=== PATIENT | female | born 1995 | race Caucasian/White ===

== ENCOUNTER 2017-02-21 18:01 | Emergency (ER) | payer MEDICAID, OTHER ==
[~2017-02-21] VITALS: Ht 157.5 cm; Wt 75.5 kg
[2017-02-21 18:03] VITALS: Ht 157.5 cm; Wt 75.5 kg
[2017-02-21] MEDS ORDERED: CEPH-443 PO (18:52)
[2017-02-21] MEDS ORDERED: IBUP-1542 PO (18:52)
[2017-02-21] MEDS ORDERED: SULF1TAB31 PO (18:52)
--- NOTE | 2017-02-21 19:07 | ERD ---
ER Documentation Chief Complaint Date/Time DATE: 02/21/17 TIME: 19:05 Chief Complaint LEFT THUMB FINGER PAIN HPI 21-year-old female presents to emergency department for complaints of redness and pustular discharge coming out from the skin surrounding the left thumbnail started yesterday. Patient's clinical pain, sharp pain, 4/10 scale, is worse upon touching the area. Patient was able to drain pustular discharge from the area. Patient does not have any numbness or tingling. Patient denies any deformity. Patient denies any trauma and affected area. Patient denies any fever or chills. ROS All systems reviewed and are negative except as per history of present illness. Medications Home Meds Active Scripts Cephalexin* (Keflex*) 500 Mg Capsule, 500 MG PO QID for 10 Days, CAP Prov:ML FERNÁNDEZ NP 02/21/17 Sulfamethoxazole/Trimethoprim* (Bactrim Ds* Tablet) 1 Each Tablet, 1 TAB PO BID , #20 TAB Prov:ML FERNÁNDEZ NP 02/21/17 Ibuprofen* (Motrin*) 600 Mg Tab, 600 MG PO Q6H Y for PAIN AND OR ELEVATED TEMP, #30 TAB Prov:ML FERNÁNDEZ NP 02/21/17 Allergies Allergies: Coded Allergies: No Known Allergy (Unverified , 07/16/12) PMhx/Soc Medical and Surgical Hx: pt denies Medical Hx History of Surgery: Yes ( section) Anesthesia Reaction: No Hx Neurological Disorder: No Hx Respiratory Disorders: No Hx Cardiac Disorders: No Hx Psychiatric Problems: No Hx Miscellaneous Medical Probl: No Hx Alcohol Use: No Hx Substance Use: No Hx Tobacco Use: No FmHx Family History: No coronary disease, No diabetes, No other Physical Exam Vitals Vital Signs Date Time Temp Pulse Resp B/P Pulse Ox O2 Delivery O2 Flow Rate FiO2 02/21/17 18:03 98.2 90 19 119/67 99 Physical Exam GENERAL: The patient is well developed and appropriate for usual state of health, in no apparent distress. CHEST: Clear to auscultation bilaterally. There are no rales, wheezes or rhonchi. HEART: Regular rate and rhythm. No murmurs, clicks, rubs or gallops. No S3 or S4. ABDOMEN: Soft, nontender and nondistended. Good bowel sounds. No rebound or guarding. No gross peritonitis. No gross organomegaly or masses. No Gresham sign or McBurney point tenderness. BACK: No midline or flank tenderness. EXTREMITIES: Equal pulses bilaterally. There is no peripheral clubbing, cyanosis or edema. No focal swelling or erythema. Full range of motion. Grossly neurovascularly intact. NEURO: Alert and oriented. Cranial nerves 2-12 intact. Motor strength in all 4 extremities with 5/5 strength. Sensation grossly intact. Normal speech and gait. SKIN: Noted redness and swelling surrounding the left thumb nail, now. Discharge noted. No fluctuance noted. There is no apparent ecchymosis or petechia. The skin is warm and dry. HEMATOLOGIC AND LYMPHATIC: There is no evidence of excessive bruising or lymphedema. No gross cervical, axillary, or inguinal lymphadenopathy. Procedures/MDM Medical decision making: Patient's symptoms most likely consistent with paronychia, at this time,incision and drainage is not indicated, is already draining pustular discharge,at this time, no discharge noted, no fluctuance noted. No symptoms of any neurovascular compromise. No symptoms of sepsis at this time. Patient appears well and is hemodynamically stable. Patient was given for Bactrim, Keflex, ibuprofen, to follow with primary care doctor in 2 days for reevaluation of symptoms. Patient was advised to do wound care on affected area. Patient was advised to return to emergency department for worsening symptoms. Departure Diagnosis: Primary Impression: Paronychia Laterality: left Qualified Code: L03.012 - Paronychia, left Condition: Stable Patient Instructions: ML Sky NP February 21, 2017 19:07
== END 2017-02-21 18:13 | disposition home or self-care (01) ==
LOC: E/R 18:01
DX: L03.012 Cellulitis of left finger (principal)
CPT/HCPCS: 99282

== ENCOUNTER 2019-01-24 20:16 | Outpatient (CLI) | payer BC ==
[~2019-01-24] VITALS: Ht 152.4 cm; Wt 72.6 kg
[~2019-01-24 20:16] MED LIST: CEPH-443 PO; IBUP-1542 PO; SULF1TAB31 PO
[2019-01-24 20:34] VITALS: BP 121/81; PULSE 83; RESP 18
[2019-01-24] MEDS ORDERED: PREN-19 PO (20:36)
[2019-01-24] MEDS ORDERED: CEFTRIAXONE 1 GM/50 ML (PMX) 50 ML IVPB ONE (22:30)
[2019-01-24] MEDS ORDERED: SOD CHLORIDE 0.9% 1,000 ML IV ONE (22:30)
[2019-01-24] MEDS ORDERED: SOD CHLORIDE 0.9% 1,000 ML IV SCH (23:00)
--- NOTE | 2019-01-25 01:46 | PN ---
Triage Information Date/Time 01/25/19 0140 Reason for visit: Vag spotting / bleeding Weeks of Gestation 30w2d /Para A1 Diabetes: none Hypertention: none Additional information back pain Objective Vital Signs Date Temp Pulse Resp B/P (MAP) Pulse Ox O2 O2 Flow FiO2 Time Delivery Rate 01/24/19 98.2 83 18 121/81 Room Air 20:34 (94) Intake and Output 01/24/19 01/24/19 01/25/19 1515:00 23:00 07:00 IntakeIntake Total 350 ml BalanceBalance 350 ml Heart Rate Comments CAT I tracing Exam CVA ? tenderness left Results/Medications Result Diagram: 01/24/192119 Results 24 hrs Laboratory Tests Test 01/24/19 20:15 01/24/19 21:20 Urine Color LINDA Urine Clarity SLIGHTLY CLOUDY A Urine pH 6.0 Urine Specific Alsey 1.033 H Urine Ketones TRACE A Urine Nitrite NEGATIVE Urine Bilirubin NEGATIVE Urine Urobilinogen 2+ H Urine Leukocyte Esterase TRACE A Urine Microscopic RBC 2 Urine Microscopic WBC 9 H Urine Squamous Epithelial Cells MODERATE Urine Bacteria FEW A Urine Mucus MANY A Urine Hemoglobin 3+ H Urine Glucose 1+ H Urine Total Protein 2+ H White Blood Count 6.6 Red Blood Count 3.84 L Hemoglobin 11.3 L Hematocrit 33.8 L Mean Corpuscular Volume 88.0 Mean Corpuscular Hemoglobin 29.4 Mean Corpuscular Hemoglobin Concent 33.4 Red Cell Distribution Width 12.9 Platelet Count 202 Mean Platelet Volume 10.4 Immature Granulocytes % 0.300 Neutrophils % 63.8 Lymphocytes % 27.1 Monocytes % 7.3 Eosinophils % 1.2 Basophils % 0.3 Nucleated Red Blood Cells % 0.0 Immature Granulocytes # 0.020 Neutrophils # 4.2 Lymphocytes # 1.8 Monocytes # 0.5 Eosinophils # 0.1 Basophils # 0.0 Nucleated Red Blood Cells # 0.0 Medications IV NS rocephin 1gm Imaging Results CVL 4.3 BPP 8/8 EFW 1607gm 48.95 Disposition: Discharge Assessment/Plan A IUP 30w2d backache resolved UTI P discharge with cephalexin 500mg Q6HR #28 RTH with routine labor instructions JOAQUIN SEN MD January 25, 2019 01:46
--- NOTE | 2019-01-25 03:25 | TRIAGE ---
OB Triage Datetime Report Generated by CPN: 01/25/2019 03:24 Datetime: 01/24/2019 21:11 Vaginal Exam Membrane Status: Intact Datetime: 01/24/2019 20:40 Time of Arrival: 01/24/2019 20:09 EGA: 30.2 Arrived By: Ambulatory Arrived From: Home Chief Complaint: hx c/s x2 c/o back pain off and on last several days and now since 1900, and mod dk red bleeding since 1700 Movement: Present Contractions: Irregular Rupture of Membranes: Denies Vaginal Bleeding: Moderate Vaginal Discharge: Present Recent Sexual Intercouse: Denies Abdominal Trauma: Not Applicable Patient Complaints: Back Pain Time Provider Notified: 01/24/2019 20:30 Provider Notified: Dr Wheatley Initial Plan: EFM, UA, URINE CULTURE, CBC,CVL,BPP,EFW, PO HYDRATION Datetime: 01/24/2019 20:30 Stage of : OB Triage Labor Evaluation Monitor Mode: External Duration (sec)2399: 20-30 Quality: Mild Pattern: Normal: <= 5 Contractions in 10 Minutes Resting Tone Embarrass: Relaxed Heart Rate FHR Baseline Rate: 135 Monitor Mode: External US FHR Baseline Changes: No Baseline Change Variability: Moderate 6-25 bpm Accelerations: 15X15 Decelerations: None Category: Category I Datetime: 01/24/2019 20:22 Stage of : OB Triage Maternal Assessment Level of Consciousness: Fully Conscious Headache: Denies Blurred Vision: No Respiratory Effort: Unlabored Nausea/Vomiting: Denies RUQ Epigastric Pain: Denies Facial Edema: None Labor Evaluation Monitor Mode: External Resting Tone Embarrass: Relaxed Heart Rate FHR Baseline Rate: 140 Monitor Mode: External US Pain Assessment Pain Scale: 7 Pain Presence: Intermittent Pain Type: Sharp; Ache Pain Location: Back
== END 2019-01-25 01:15 | disposition home or self-care (01) ==
LOC: OBT 20:16 → L-D 20:17 → OBT 01-25 01:15
PROVIDERS: ATTEND Specialist
DX: O46.8X3 Other antepartum hemorrhage, third trimester (principal); Z3A.30 30 weeks gestation of pregnancy
CPT/HCPCS: 36415; 76815; 76817; 76818; 81001; 85025; 87086; 96360; 96361; J0696; J7030; Z7500; G0463

== ENCOUNTER 2019-03-26 13:21 | Inpatient (IN) | payer BC ==
[~2019-03-26] VITALS: Ht 152.4 cm; Wt 75.9 kg
[~2019-03-26 13:21] MED LIST changes: -CEPH-443 PO; -IBUP-1542 PO; +PREN-19 PO; -SULF1TAB31 PO
[2019-03-26 14:09] VITALS: Ht 152.4 cm; Wt 75.9 kg
[2019-03-26 14:10] VITALS: BP 99/65; PULSE 80; RESP 19
[2019-03-26] MEDS ORDERED: MISOPROSTOL 200 MCG TAB PR PRN ×2 (14:30→18:00)
[2019-03-26] MEDS ORDERED: OXYTOCIN 30 UNITS/LR 500 ML IV PRN (14:30)
[2019-03-26] MEDS ORDERED: CEFAZOLIN 2 GM/50 ML (PMX) 50 ML IVPB SCH (14:30)
[2019-03-26] MEDS ORDERED: METHYLERGONOVINE 0.2 MG INJ IM PRN (14:30)
[2019-03-26] MEDS ORDERED: CARBOPROST 250 MCG INJ IM PRN (14:30)
[2019-03-26] MEDS: LACTATED RINGER'S 1,000 ML IV SCH ×2 (14:35→16:21)
[2019-03-26] MEDS ORDERED: ONDANSETRON 4 MG INJ IV STA (16:17)
--- NOTE | 2019-03-26 16:39 | PREAC ---
Date/Time of Note Date/Time of Note DATE: 03/26/19 TIME: 16:37 Anesthesia Eval and Record Evaluation Time Pre-Procedure Interview DATE: 03/26/19 TIME: 16:37 Age 23 Sex female NPO: 8 hrs Preoperative diagnosis PREVIOUS C SECTION Planned procedure REPEAT C SECTION Past Medical History Past Medical History: Includes : : (5), Para: (2 AB2), Gestational age: (39 WKS) Surgery & Anesthesia Issues No known issue Meds Anticoagulation: No Beta Mundo within 24 hr: No Reason Beta Mundo not given: Pt. not on B-Mundo Reported Medications Vit #76/Iron,Carb/FA (Prenatabs Rx Tablet) 1 Each Tablet, 1 EACH PO DAILY, TAB 01/24/19 Current Medications Lactated Ringer's 1,000 ml @ 125 mls/hr Q8H IV Last administered on 03/26/19at 16:21; Admin Dose 125 MLS/HR; Start 03/26/19 at 14:12 Cefazolin Sodium/ Dextrose 50 ml @ 100 mls/hr ONCE IVPB ; Start 03/26/19 at 14:30 Oxytocin/Lactated Ringer's 500 ml @ 125 mls/hr POST IV ; Start 03/26/19 at 14:30 Oxytocin/Lactated Ringer's 500 ml @ 0 mls/hr ONCE PRN IV .VAGINAL BLEEDING; Start 03/26/19 at 14:30 Methylergonovine Maleate (Methergine) 0.2 mg ONCE PRN IM .VAGINAL BLEEDING; Start 03/26/19 at 14:30 Carboprost Tromethamine (Hemabate) 250 mcg ONCE PRN IM .VAGINAL BLEEDING; Start 03/26/19 at 14:30 Misoprostol (Cytotec) 1,000 mcg ONCE PRN PA .VAGINAL BLEEDING; Start 03/26/19 at 14:30 Citric Acid/ Sodium Citrate (Bicitra) 30 ml ONCE ONCE PO ; Start 03/26/19 at 17:00; Stop 03/26/19 at 17:01 Meds reviewed: Yes Allergies Coded Allergies: No Known Allergy (Unverified , 01/24/19) Allergies Reviewed: Yes Labs/Studies Labs Reviewed: Reviewed by anesthesiologist Result Diagram: 03/26/19 1442 Laboratory Tests 03/26/19 14:42 Blood Bank Test 7/2/19 14:42 Antibody Screen NEGATIVE Blood Type O POSITIVE Rh Immune Globulin Candidate NO test: N/A Pre-procedure Exam Last vitals Vital Signs Date Temp Pulse Resp B/P (MAP) Pulse Ox O2 O2 Flow FiO2 Time Delivery Rate 03/26/19 98.0 80 19 99/65 (76) Room Air 14:10 Airway: Adequate mouth opening, Adequate thyromental dist Mallampati: Mallampati II Teeth: Normal Lung: Normal Heart: Normal ASA Physical Status ASA physical status: 2 Emergency: None Planned Anesthetic Neuraxial: Spinal Planned Pain Management Sub-arachniod narcotics Pre-operative Attestations Prior to commencing anesthesia and surgery, the patient was re-evaluated, there was verification of: *The patient's identity *The results of appropriate recent lab work and preoperative vital signs *The above evaluation not changing prior to induction *Anesthetic plan, risk benefits, alternative and complications discussed with p atient/family; questions answered; patient/family understands, accepts and wishes to proceed. Sunny Lopze M.D. Mar 26, 2019 16:39
[2019-03-26] MEDS ORDERED: IPRATROPIUM (NEB) 0.5 MG/2.5 ML AMP HHN PRN (17:00)
[2019-03-26] MEDS ORDERED: MEPERIDINE 25 MG INJ IV PRN (17:00)
[2019-03-26] MEDS ORDERED: MIDAZOLAM 1 MG/ML 2 ML INJ IV PRN (17:00)
[2019-03-26] MEDS ORDERED: HYDROmorphONE 1 MG/5 ML IV SYRINGE IV PRN ×3 (17:00)
[2019-03-26] MEDS ORDERED: NALBUPHINE HCL (10 MG/1 ML) INJ IV PRN (17:00)
[2019-03-26] MEDS ORDERED: ONDANSETRON 4 MG INJ IV PRN ×2 (17:00)
[2019-03-26] MEDS ORDERED: OXYCODONE/ACETAMINOPHEN (5/325) TAB PO PRN ×4 (17:00→18:00)
[2019-03-26] MEDS ORDERED: DIPHENHYDRAMINE 50 MG INJ IV PRN ×2 (17:00)
[2019-03-26] MEDS ORDERED: TRIMETHOBENZAMIDE 100 MG/ML VIAL IM PRN ×2 (17:00)
[2019-03-26] MEDS ORDERED: NALOXONE (0.4 MG/ML) INJ IV PRN (17:00)
[2019-03-26] MEDS ORDERED: ALBUTEROL 0.083% (NEB) 2.5 MG/3 ML AMP HHN PRN (17:00)
[2019-03-26] MEDS ORDERED: LABETALOL HCL 20MG INJ IV PRN (17:00)
[2019-03-26] MEDS ORDERED: FENTAnyl 50 MCG/ML VIAL IV PRN ×3 (17:00)
[2019-03-26] MEDS ORDERED: hydrALAzine 20 MG INJ IV PRN (17:00)
[2019-03-26] MEDS ORDERED: EPHEDrine 25 MG/5 ML SYG IV PRN (17:00)
[2019-03-26] MEDS ORDERED: morphine 2 MG INJ IV PRN ×2 (17:00)
[2019-03-26] MEDS ORDERED: CITRIC ACID/NA CITRATE 30 ML CUP PO ONE (17:00)
[2019-03-26] MEDS ORDERED: LACTATED RINGER'S 1,000 ML IV SCH (17:47)
--- NOTE | 2019-03-26 17:47 | HP ---
Date/Time of Note Date/Time of Note DATE: 03/26/19 TIME: 17:45 OB - History Hx of Present Free Text/Dictation 23 YO with IUP at 39 weeks with history of previous delivery x 2, who desires to have repeat delivery. I discussed with the patient the risks, benefits, indications, and alternatives of procedure including but not limited to risks of infection, bleeding, damage to other organs, bowel, bladder, hernia formation, scar formation, possibility of blood transfusion, possible need for emergency hysterectomy. She was allowed to ask questions. All her questions were answered. Informed consent has been obtained. Care: Good Care Ultrasounds: Normal mid trimester US Obstetrical Complications: None Medical Complications: None Past Family/Social History * Past Medical, Surgical, Family and Obstetric Histories reviewed from chart. OB Admission Exam Vital Signs Vital Signs Vital Signs Date Temp Pulse Resp B/P (MAP) Pulse Ox O2 O2 Flow FiO2 Time Delivery Rate 03/26/19 98.0 80 19 99/65 (76) Room Air 14:10 Physical Exam HEENT: WNL Heart: Rhythm Normal Lungs: Clear, Equal Abdomen: WNL Extremities: Normal Reflexes: Normal Last 72 hours Lab Results CBC & BMP 03/26/19 14:42 OB Assessment/Plan Reason for admission: section Plan: Section AMANDA MOSES MD Mar 26, 2019 17:47
[2019-03-26] MEDS ORDERED: FENTAnyl 50 MCG/ML VIAL ONE (17:57)
[2019-03-26] MEDS ORDERED: morphine SULFATE/PF (10 MG/10 ML) INJ ONE (17:57)
[2019-03-26] MEDS ORDERED: OXYTOCIN 10 UNIT INJ ONE (17:57)
[2019-03-26] MEDS ORDERED: METOCLOPRAMIDE 10 MG INJ ONE (17:57)
[2019-03-26] MEDS ORDERED: NA PHOSPHATE/BIPHOS 133 ML ENEMA PR PRN (18:00)
--- NOTE | 2019-03-26 18:47 | OPR ---
Date/Time of Note Date/Time of Note DATE: 03/26/19 TIME: 18:44 Operative Report Procedure Date: Mar 26, 2019 Preoperative Diagnosis IUP at 39 weeks Desires repeat delivery Postoperative Diagnosis same Operation/Procedure Performed repeat delivery Surgeon Eun Barragan MD Account Receivable Associate Dr. Torres Anesthesia Type: spinal Estimated Blood Loss: other (700 ml) Transfusion none Specimen none Grafts/Implants none Tubes/Drains Mckeon Cath Complications none Pt Condition Post Procedure: stable Disposition: PACU Procedure Description The risks, benefits, indications, alternatives of procedure including, but not limited to risk of infection, bleeding, damage to other organs, bowel, bladder, hernia formation, scar formation, possibility of blood transfusions discussed with patient. She was allowed to ask questions. All her questions were answered. Informed consent was obtained. DESCRIPTION OF PROCEDURE: She was taken to the operating room. Spinal anesthesia was induced. She was prepped and draped in the usual sterile fashion. Surgical time out one. Anesthesia was tested to be adequate. With permission from anesthesiologist, a knife was used to make a Pfannenstiel skin incision. The incision was taken down in layers. The fascia was cut, undermined and from the underlying muscle using sharp and blunt dissection. All the bleeders were cauterized. Peritoneum was entered bluntly. A low transverse incision was developed over the uterus. Amniotic fluid was clear and adequate. A viable infant in vertex presentation was delivered without any difficulty. The cord was clamped and cut, handed to awaiting team. Placenta was then delivered. Uterus was exteriorized, wrapped around a moist lap. Inside uterus was cleaned using a dry lap. All residual membranes were removed. The uterine incision was then closed using #1 Monocryl in 2 layers. The uterus was inserted back inside the abdominal cavity. Irrigation was done carefully. Careful evaluation of the uterine incision revealed no further bleeding. The peritoneum and rectus muscles and fascia were evaluated. All bleeders cauterized. Peritoneum was closed using 2-0 Monocryl. At this time, the count was correct. Rectus muscle was reapproximated using 2-0 Monocryl. Rectus fascia was closed using #1 Vicryl. Subcutaneous tissue was cleaned and irrigated. All bleeders cauterized and the skin closed using Insorb. All counts correct. EUN BARRAGAN MD Mar 26, 2019 18:47
--- NOTE | 2019-03-26 19:26 | PAC ---
Date/Time of Note Date/Time of Note DATE: 03/26/19 TIME: 19:26 Post-Anesthesia Notes Post-Anesthesia Note Last documented vital signs Vital Signs Date Temp Pulse Resp B/P (MAP) Pulse Ox O2 O2 Flow FiO2 Time Delivery Rate 03/26/19 98.0 80 19 99/65 (76) Room Air 14:10 Activity: WNL Respiratory function: WNL Cardiovascular function: WNL Mental status: Baseline Pain reasonably controlled: Yes Hydration appropriate: Yes Nausea/Vomiting absent: Yes Sunny Lopez M.D. Mar 26, 2019 19:26
[2019-03-26] MEDS: OXYTOCIN 30 UNITS/LR 500 ML IV SCH ×2 (19:29→23:36)
[2019-03-26] MEDS: KETOROLAC 30 MG INJ IV PRN (21:19)
[2019-03-26 21:50] VITALS: BP 119/74; PULSE 54; RESP 18
[2019-03-26] MEDS: SENNA/DOCUSATE NA (8.6MG/50MG) TAB PO SCH (21:50)
[2019-03-27] VITALS: BP 95/59; PULSE 67; RESP 18
[2019-03-27 04:00] VITALS: BP 99/55; PULSE 73; RESP 20
[2019-03-27] MEDS: LACTATED RINGER'S 1,000 ML IV SCH ×3 (06:12→22:12)
--- NOTE | 2019-03-27 07:58 | QN ---
Documentation Comment s/p c/s Subjective: no complaint Objective: Afebrile, VSS NAD A&O Abdomen: soft, appropriate tender Incision: no sign of bleeding/infection mild lochia Extremity: 1+ edema bilaterally Assessment: S/p C/S POD # 1 Recovering Well Plan: current care AMANDA MOSES MD Mar 27, 2019 07:57
[2019-03-27 08:00] VITALS: BP 93/55; PULSE 73; RESP 16
[2019-03-27] MEDS: LANOLIN HPA 1 PKT TOP PRN (09:31)
[2019-03-27] MEDS: SENNA/DOCUSATE NA (8.6MG/50MG) TAB PO SCH ×2 (09:31→21:58)
[2019-03-27 12:00] VITALS: BP 100/63; PULSE 77; RESP 17
[2019-03-27] MEDS: KETOROLAC 30 MG INJ IV PRN (13:33)
[2019-03-27 16:00] VITALS: BP 98/61; PULSE 71; RESP 18
[2019-03-27] MEDS: IBUPROFEN 600 MG TAB PO SCH (18:57)
[2019-03-27 20:00] VITALS: BP 110/70; PULSE 68; RESP 18
[2019-03-28] MEDS: IBUPROFEN 600 MG TAB PO SCH ×5 (00:01→23:34)
[2019-03-28 04:00] VITALS: BP 90/57; PULSE 62; RESP 18
[2019-03-28] MEDS: LACTATED RINGER'S 1,000 ML IV SCH (06:12)
[2019-03-28 08:00] VITALS: BP 96/68; PULSE 61; RESP 18
[2019-03-28] MEDS: SENNA/DOCUSATE NA (8.6MG/50MG) TAB PO SCH ×2 (09:03→21:36)
[2019-03-28 16:04] VITALS: BP 104/63; PULSE 72; RESP 16
[2019-03-28 19:30] VITALS: BP 106/71; PULSE 75; RESP 19
--- NOTE | 2019-03-28 23:14 | PN ---
Date/Time of Note Date/Time of Note DATE: 03/28/19 TIME: 23:11 OB Subjective Subjective Subjective Past flatus. Ambulating. Pain well-controlled with p.o. pain medication. Br east-feeding. Tolerated regular diet. Denies any complaint. OB Objective Objective Objective General appearance: Alert and oriented x4 does not appear to be in any acute distress Lungs: Clear to auscultation bilaterally CV: RRR Extremities: No calf tenderness, no click no edema no cord palpable Abdomen: Soft, appropriate tenderness in the incision. Incision clean dry and intact with no evidence of infection drainage or hematoma Breast: No evidence of mastitis or fissure VS - Last 72 Hours, by Label Date Temp Pulse Resp B/P (MAP) Pulse Ox O2 O2 Flow FiO2 Time Delivery Rate 03/28/19 98.9 75 19 106/71 Room Air 19:30 (83) 03/28/19 98.5 72 16 104/63 Room Air 16:04 (77) 03/28/19 97.9 61 18 96/68 (77) 08:00 03/28/19 98.0 62 18 90/57 (68) Room Air 04:00 03/27/19 97.8 68 18 110/70 Room Air 20:00 (83) 03/27/19 98.3 71 18 98/61 (73) 16:00 03/27/19 67 16:00 03/27/19 98.3 77 17 100/63 97 Room Air 12:00 (75) 03/27/19 98.3 73 16 93/55 (68) 96 Room Air 08:00 03/27/19 98.2 73 20 99/55 (70) 97 Room Air 04:00 03/27/19 97.7 67 18 95/59 (71) 99 Room Air 00:00 03/26/19 97.5 54 18 119/74 100 Room Air 21:50 (89) 03/26/19 98.0 80 19 99/65 (76) Room Air 14:10 OB Assessment/Plan Other Assessment: Status post repeat section at 39 weeks Postoperative day #2 Doing well, mild anemia, asymptomatic History of substance abuse, U tox positive for marijuana, grandmother has custody of the child Routine postop care Possible DC home tomorrow SHANNAN BALES MD Mar 28, 2019 23:14
[2019-03-29 03:30] VITALS: BP 116/76; PULSE 71; RESP 18
[2019-03-29] MEDS: IBUPROFEN 600 MG TAB PO SCH ×2 (05:46→12:42)
[2019-03-29 08:00] VITALS: BP 111/72; PULSE 67; RESP 16
[2019-03-29] MEDS ORDERED: DIPHTH/TET/ACEL PERTUSS (ADULT) 0.5 ML VIAL IM* ONE (09:00)
[2019-03-29] MEDS ORDERED: MEASLES,MUMPS,RUBELLA VACCINE INJ SC* ONE (09:00)
[2019-03-29] MEDS: SENNA/DOCUSATE NA (8.6MG/50MG) TAB PO SCH (09:31)
[2019-03-29] MEDS: LANOLIN HPA 1 PKT TOP PRN (09:31)
--- NOTE | 2019-03-29 13:49 | PD.PPDC ---
EXTERMINATOR HELPER TERMITE Discharge Instruction Diagnosis [id number] Final Diagnosis: Jivlz8h s/p repeat c/s Condition [id number] Patient Condition: Beerj6p Stable Diet [id number] Diet: Uaikp5e Resume Regular Diet Activity/Restrictions Tbrei2Hj Activity: Psytd6e May Shower Uubrr0So Restrictions: Detgt8v No Exercising No Lifting Minimize Stair-climbing No Sexual Activity Nothing in the Vagina No [place] No Tampons, douche Wound/Drain Care Instructions Fcemq5Qu Wound/Drain Care Instructions: Yjjbi8d Wash with soap and water Keep clean and dry Follow-up Follow-up with Physician: 2, Week/Weeks Return to clinic for Gddfu8Rq [employer] PIPING DESIGNER Instructions: Igapo0m Fever greater than 101 Chills Worsening abdominal pain Excessive Vaginal Bleeding More than 2 pads per hour Unable to tolerate diet [id number] OB Instructions: Xlija1r Breast Tenderness Depression Blurried Vision Headache Dymqp2Hf Surgical Instructions: Jjbdy9d Incisional Drainage Incisional Redness JOAQUIN SEN MD Mar 29, 2019 13:49
--- NOTE | 2019-03-29 13:51 | DS ---
Date/Time of Note Date/Time of Note DATE: 03/29/19 TIME: 13:50 Obstetrical Discharge Record Final Diagnosis Final Diagnosis: Term delivered Section Section: Repeat Complications Augmentation: No Induction: No Rupture of Membranes: No Condition on Discharge Physical Assessment Last Vitals: VSS afebrile Voiding: Yes Bowel Movement: Yes Breast: Soft, non-tender Fundus: Firm Abdomen and Incision: soft wound dry Episiotomy: n/a Calf Tenderness: No Patient Condition: Stable JOAQUIN ESN MD Mar 29, 2019 13:51
--- NOTE | 2019-03-30 16:14 | DELSUM ---
Delivery Summary A-C Datetime Report Generated by CPN: 03/30/2019 16:13 DELIVERY PERSONNEL Control Systems Engineer: Ghukasyan, Candace MATERNAL INFORMATION Delivery Anesthesia: Spinal Medications in Delivery: see anesthesia Delivery QBL (ml): 700 Placenta Cultured: No Maternal Complications: None LABOR SUMMARY EDC: 04/02/2019 00:00 No. Babies in Womb: 1 Attempted: No Labor Anesthesia: None LABOR INFORMATION Reason for Induction: Not Applicable Group B Beta Strep: Done, Result Unknown Antibiotics # of Doses: 1 Antibiotics Time of Last Dose: 03/26/2019 17:57 Steroids Given: None Reason Steroids Not Administered: Not Applicable MEMBRANES Membranes Rupture Method: Artificial Rupture of Membranes: 03/26/2019 18:21 Length of Rupture (hr): 0.02 Amniotic Fluid Color: Clear Amniotic Fluid Amount: Small Amniotic Fluid Odor: None STAGES OF LABOR Stage 3 hr: 0 Stage 3 min: 1 CSECTION DELIVERY Primary Indication: Repeat Elective Secondary Indication: N/A CSection Urgency: Non Elective CSection Incidence: Repeat Labor: No Labor Elective: N/A CSection Incision: Lower Uterine Transverse BABY A INFORMATION Infant Delivery Date/Time: 03/26/2019 18:22 Method of Delivery: Born in Route : No : N/A Forceps: N/A Vacuum Extraction: N/A Shoulder Dystocia : N/A SHOULDER DYSTOCIA BABY A Infant Delivery Date/Time: 03/26/2019 18:22 PRESENTATION/POSITION BABY A Presentation: Cephalic Cephalic Presentation: Vertex Vertex Position: Left Occipital Anterior Breech Presentation: N/A PLACENTA INFORMATION BABY A Placenta Delivery Time : 03/26/2019 18:23 Placenta Method of Delivery: Manual Removal Placenta Status: Delivered SCORES BABY A Heart Rate 1 min: >100 bpm Resp Effort 1 min: Good Cry Reflex Irritability 1 min: Cough/Sneeze/Pulls Away Muscle Tone 1 min: Active Motion Color 1 min: Blue/Pale Resuscitation Effort 1 min: Tactile Stimulation SCORE 1 MIN: 8 Heart Rate 5 min: >100 bpm Resp Effort 5 min: Good Cry Reflex Irritability 5 min: Cough/Sneeze/Pulls Away Muscle Tone 5 min: Active Motion Color 5 min: Body [place], Extremit Blue Resuscitation Effort 5 min: Tactile Stimulation SCORE 5 MIN: 9 INFORMATION BABY A Gestational Age at Delivery: 39.0 Gestational Status: Full Term- 39- 40.6 Weeks Outcome : Liveborn, with signs of life Infant Condition : Stable Infant Sex: Male IDENTIFICATION/MEDS BABY A ID Band Number: [id number] ID Band Location: Right Leg; Left Arm Sensor Applied: Yes Sensor Number: [id number] Sensor Location : Cord Clamp Vitamin K Given : Not Given Erythromycin Given: Not Given WEIGHT/LENGTH BABY A Birthweight (gm): 3600 Infant Weight (lb): 7 Infant Weight (oz): 15 Length (in): 20.50 Length (cm): 52.07 CORD INFORMATION BABY A No. Cord Vessels: 3 Nuchal Cord : Around Neck x1, Loose Cord Blood Taken: Yes Suction: Mouth; Nose ASSESSMENT BABY A Complications: None Physical Findings at Delivery: Within Normal Limits Respirations: Appears Normal Veneer Department Manager/ALS Called : No Care By: CLARA MOMIN Transferred To: Remains with Mother
== END 2019-03-29 16:13 | disposition home or self-care (01) | DRG 787 ==
LOC: L-D 13:21 → PP1 21:50
PROVIDERS: ADMIT Specialist; ATTEND Specialist
PROC: 10D00Z1 Extraction of Products of Conception, Low, Open Approach (ICD-10-PCS; principal; 2019-03-26 17:30)
DX: O65.5 Obstructed labor due to abnormality of maternal pelvic organs (principal); O99.323 Drug use complicating pregnancy, third trimester; O34.211 Maternal care for low transverse scar from previous cesarean delivery; O99.013 Anemia complicating pregnancy, third trimester; F12.90 Cannabis use, unspecified, uncomplicated; Z3A.39 39 weeks gestation of pregnancy; Z37.0 Single live birth
CPT/HCPCS: 80307; 85025; 85610; 85730; 86592; 86850; 86900; 86901; 87340; 99464; J0690; J1885; J2274; J2405; J2590; J2765; J3010; J7120